=== PATIENT | female | born 1960 | race Caucasian/White ===

== ENCOUNTER 2021-04-24 18:04 | Inpatient (IN) | payer MEDICAID ==
[~2021-04-24] VITALS: Ht 154.9 cm; Wt 51.8 kg
[~2021-04-24 18:04] MED LIST: ASPI-1264 PO; METH10TA6 PO; PROP40TA72 PO
[2021-04-24] MEDS ORDERED: NORepinephrine 8mg/ 250ml NS 250 ML IV ONE (18:37)
--- NOTE | 2021-04-24 18:38 | NUR ---
[id number]
[2021-04-24] MEDS ORDERED: vancomycin/NS 1 GM ADD-VANTAGE 250 ML IV ONE (18:55)
[2021-04-24] MEDS ORDERED: piperacillin/tazo 3.375gm/50ml 50 ML IV ONE (18:55)
[2021-04-24 19:05] LABS: BASOPHILS % (AUTO) 0.5 % (0-1); EOSINOPHILS % (AUTO) 0.3 % (0-6); LYMPHOCYTES # (AUTO) 1.7 X10'3 (1.1-4.8); NEUTROPHILS # (AUTO) 5.5 X10'3 (1.8-7.7)
[2021-04-24 19:07] LABS: LYMPHOCYTES % (AUTO) 21.8 % (21-51); MEAN CORPUSCULAR HEMOGLOBIN 32.7 PG (27.0-31.0); MEAN CORPUSCULAR HGB CONC 33.8 g/dL (33.0-36.5); MEAN CORPUSCULAR VOLUME 96.8 FL (78-98); MEAN PLATELET VOLUME 7.1 FL (7.4-10.4); MONOCYTES # (AUTO) 0.5 X10'3 (0-0.9); MONOCYTES % (AUTO) 5.9 % (2-12); NEUTROPHILS % (AUTO) 71.5 % (42-75); PLATELET COUNT 242 X10'3 (140-440); RED CELL DISTRIBUTION WIDTH 14.1 % (11.5-14.5); WHITE BLOOD COUNT 7.7 X10'3 (4.5-11.0)
[2021-04-24 19:12] LABS: HEMATOCRIT 15.5 % (35.0-45.0)
[2021-04-24] MEDS ORDERED: octreotide inj. 1,250 MCG in normal saline 250ml IV soln 250 ML IV ONE (19:15)
[2021-04-24] MEDS ORDERED: pantoprazole IV 80 MG in normal saline 100ml IV soln 100 ML IV ONE ×4 (19:15)
[2021-04-24] MEDS ORDERED: pantoprazole IV 40 MG in normal saline 100ml IV soln 100 ML IV ONE (19:25)
[2021-04-24 19:28] LABS: ALANINE AMINOTRANSFERASE 14 U/L (12-78); ALBUMIN 2.4 G/DL (3.4-5.0); ALBUMIN/GLOBULIN RATIO 0.9 (1.1-1.5); ALKALINE PHOSPHATASE 170 IU/L (46-116); ANION GAP 16 (8-16); ASPARTATE AMINO TRANSFERASE 157 U/L (10-37); BILIRUBIN,TOTAL 0.5 MG/DL (0.1-1.0); CALCIUM 7.5 MG/DL (8.5-10.1); CHLORIDE 104 MMOL/L (99-107); CREATININE 7.32 MG/DL (0.40-0.90); GLUCOSE 114 MG/DL (70-104); LIPASE 424 U/L (73-393); POTASSIUM 5.2 MMOL/L (3.5-5.1); SODIUM 141 MMOL/L (135-145); TOTAL CARBON DIOXIDE 20.7 MMOL/L (24-32); TOTAL PROTEIN 5.1 G/DL (6.4-8.2); eGFR 6 ML/MIN
[2021-04-24 19:32] LABS: BLOOD UREA NITROGEN 190 MG/DL (7-18)
[2021-04-24] MEDS ORDERED: pantoprazole 40MG/NS 100ML BAG 100 ML IV ONE (19:45)
[2021-04-24 19:52] LABS: BANDS% (MANUAL) 1 % (0-10); LYMPHOCYTES % (MANUAL) 22 % (21-51); METAMYLEOCYTES% (MANUAL) 7 % (0-0); MONOCYTES % (MANUAL) 10 % (2-12); NEUTROPHILS % (MANUAL) 60 % (42-75); NUCLEATED RED BLOOD CELLS 4 /100WBC (0-0); TOTAL CELLS COUNTED 100
[2021-04-24 19:53] LABS: PLATELET ESTIMATE NORMAL
[2021-04-24 20:03] LABS: COLOR,URINE YELLOW (Yellow); GLUCOSE, URINE NEGATIVE (Neg); KETONES,URINE NEGATIVE (Neg); LEUKOCYTE ESTERASE ,URINE LARGE (Neg); NITRITES, URINE NEGATIVE (Neg); OCCULT BLOOD,URINE LARGE (Neg); PROTEIN,URINE 30 mg/dl (Neg); UROBILINOGEN,URINE 0.2 E.U/dL (0.2-1.0)
[2021-04-24 20:30] LABS: CLARITY,URINE CLOUDY (Clear)
[2021-04-24] MEDS: ondansetron/PF 4mg/2ml inj IV PRN (20:33)
[2021-04-24 21:00] LABS: UA COLLECTION TYPE FOLEY CATH
[2021-04-24 21:05] LABS: WBC,URINE 50-100 /HPF (0-4)
[2021-04-24 21:06] LABS: BACTERIA,URINE NONE SEEN /HPF (Neg); RBC,URINE TNTC /HPF (0-2); SQUAMOUS EPITHELIAL CELL,UR NONE SEEN /LPF (FEW)
[2021-04-24 21:28] VITALS: BP 107/33
[2021-04-24 21:30] LABS: OCCULT BLOOD STOOL POSITIVE (Neg)
[2021-04-24 21:42] VITALS: BP 124/41
[2021-04-24 21:50] VITALS: BP 127/41
[2021-04-24 23:17] LABS: BASOPHILS % (AUTO) 0.4 % (0-1); EOSINOPHILS % (AUTO) 0.4 % (0-6); LYMPHOCYTES # (AUTO) 1.8 X10'3 (1.1-4.8); LYMPHOCYTES % (AUTO) 20.4 % (21-51); MONOCYTES # (AUTO) 0.6 X10'3 (0-0.9)
[2021-04-24 23:19] LABS: HEMATOCRIT 27.3 % (35.0-45.0); MEAN CORPUSCULAR HEMOGLOBIN 29.5 PG (27.0-31.0); MEAN CORPUSCULAR HGB CONC 33.1 g/dL (33.0-36.5); MONOCYTES % (AUTO) 7.1 % (2-12); NEUTROPHILS # (AUTO) 6.3 X10'3 (1.8-7.7); NEUTROPHILS % (AUTO) 71.7 % (42-75); PLATELET COUNT 194 X10'3 (140-440); RED BLOOD COUNT 3.06 X10'6 (4.20-5.60); RED CELL DISTRIBUTION WIDTH 19.9 % (11.5-14.5); WHITE BLOOD COUNT 8.8 X10'3 (4.5-11.0)
[2021-04-24] MEDS: pantoprazole 40MG/NS 100ML BAG 100 ML IV SCH (23:25)
[2021-04-25] VITALS (37 sets, daily range): BP systolic 85–139; BP diastolic 23–57
[2021-04-25] MEDS: NORepinephrine 8mg/ 250ml NS 250 ML IV SCH (00:53)
[2021-04-25 02:12] LABS: HEMOGLOBIN 5.3 g/dl (12.0-16.0)
[2021-04-25 02:50] LABS: BASOPHILS % (AUTO) 0.5 % (0-1); HEMOGLOBIN 8.8 g/dl (12.0-16.0); MEAN PLATELET VOLUME 7.1 FL (7.4-10.4); MONOCYTES # (AUTO) 0.5 X10'3 (0-0.9); PLATELET COUNT 192 X10'3 (140-440)
[2021-04-25 02:53] LABS: EOSINOPHILS % (AUTO) 0.6 % (0-6); HEMATOCRIT 25.9 % (35.0-45.0); LYMPHOCYTES # (AUTO) 1.5 X10'3 (1.1-4.8); LYMPHOCYTES % (AUTO) 18.8 % (21-51); MEAN CORPUSCULAR HEMOGLOBIN 29.7 PG (27.0-31.0); MEAN CORPUSCULAR VOLUME 87.6 FL (78-98); MONOCYTES % (AUTO) 6.1 % (2-12); RED BLOOD COUNT 2.96 X10'6 (4.20-5.60); RED CELL DISTRIBUTION WIDTH 20.8 % (11.5-14.5)
[2021-04-25 03:05] LABS: PARTIAL THROMBOPLASTIN TIME 31 SECONDS (22-32)
[2021-04-25 03:58] LABS: ALANINE AMINOTRANSFERASE 15 U/L (12-78); ALBUMIN 2.3 G/DL (3.4-5.0); ALBUMIN/GLOBULIN RATIO 0.9 (1.1-1.5); ALKALINE PHOSPHATASE 164 IU/L (46-116); ANION GAP 16 (8-16); ASPARTATE AMINO TRANSFERASE 177 U/L (10-37); BILIRUBIN,TOTAL 0.5 MG/DL (0.1-1.0); CALCIUM 7.6 MG/DL (8.5-10.1); CHLORIDE 108 MMOL/L (99-107); CREATININE 6.98 MG/DL (0.40-0.90); GLUCOSE 101 MG/DL (70-104); MAGNESIUM 2.6 MG/DL (1.5-2.4); POTASSIUM 5.4 MMOL/L (3.5-5.1); SODIUM 142 MMOL/L (135-145); TOTAL CARBON DIOXIDE 18.1 MMOL/L (24-32); eGFR 6 ML/MIN
[2021-04-25 03:59] LABS: BLOOD UREA NITROGEN 183 MG/DL (7-18); BUN/CREATININE RATIO 26.2 (6.6-38.0)
[2021-04-25 04:43] LABS: VANCOMYCIN,RANDOM 24.5 UG/ML
[2021-04-25] MEDS: pantoprazole 40MG/NS 100ML BAG 100 ML IV SCH ×4 (04:58→20:28)
--- NOTE | 2021-04-25 06:10 | NUR ---
Patient in room ICU 2043. I have received report from Ashlie COPELAND and had the opportunity to ask questions and assume patient care.
[2021-04-25] MEDS: piperacillin/tazo 3.375gm/50ml 50 ML IV SCH ×2 (07:56→20:33)
[2021-04-25] MEDS ORDERED: FLO0.4C PO (10:55)
[2021-04-25] MEDS ORDERED: NO HOME MEDS (11:18)
--- NOTE | 2021-04-25 11:31 | NUR ---
Malnutrition Consult: Pt admit DX acute on chronic renal failure, UGIB, bilateral ureteral stones, and L hydronephrosis w/ hx breast CA currently bone METS per EMR. Pt seen by RD reports N/V, dry mouth, and decreased appetite past 3 weeks r/t pain. Current scaled wt 43.6kg making BMI 18.2 however pt appears WD/WN during RD visit simply smaller stature. Pt reports UBW 106 pounds 3 weeks prior however no scaled wt hx at this facility and RD contacted RD's at [facility] who report pt stated wt on 04/04/21 was 45kg. Likely some wt loss hx given hx though pt lacks minimum malnutrition criteria at this time. Pt NPO at this time pending EGD and renal ultrasound per otr company driver at rounds. Will monitor for additional malnutrition criteria this admit. Addendum: 04/25/21 at [address] Amended: Links added.
[2021-04-25 12:03] LABS: CLARITY,URINE CLOUDY (Clear); COLOR,URINE STRAW (Yellow); GLUCOSE, URINE NEGATIVE (Neg); KETONES,URINE NEGATIVE (Neg); LEUKOCYTE ESTERASE ,URINE LARGE (Neg); NITRITES, URINE NEGATIVE (Neg); OCCULT BLOOD,URINE LARGE (Neg); PROTEIN,URINE 30 mg/dl (Neg); UROBILINOGEN,URINE 0.2 E.U/dL (0.2-1.0)
[2021-04-25 12:05] LABS: TOTAL PROTEIN,URINE RANDOM 56.3 MG/DL
[2021-04-25] MEDS ORDERED: MIDAZolam 1 MG/ML 5ML VIAL ONE (12:14)
[2021-04-25] MEDS ORDERED: LIDOcaine Viscous 15ml cup ONE (12:14)
[2021-04-25] MEDS ORDERED: fentaNYL/PF 50MCG/1 ML 2ML syringe ONE (12:14)
[2021-04-25 12:19] LABS: UA COLLECTION TYPE NON-SPECIFIED
[2021-04-25 12:20] LABS: RBC,URINE TNTC /HPF (0-2)
[2021-04-25 12:21] LABS: BACTERIA,URINE 1+ /HPF (Neg); SQUAMOUS EPITHELIAL CELL,UR FEW /LPF (FEW); TRANSITIONAL EPI CELLS,URINE FEW /HPF
--- NOTE | 2021-04-25 13:00 | NUR ---
Ambulated patient 300 ft in the room and hallway. no distress. Patient stable and comfortable during ambulation
[2021-04-25 13:01] LABS: UA EOSINOPHILS NO EOS /HPF
--- NOTE | 2021-04-25 13:39 | NUR ---
GI team here completing EGD.
--- NOTE | 2021-04-25 14:19 | NUR ---
Dr. Ibanez was informed he can look at the patient CT from [facility] in [facility].
--- NOTE | 2021-04-25 16:40 | NUR ---
Informed Dr. Ibanez regarding patient had large black tarry and bright bloody stool. He stated he will place a Nuclear Med study
--- NOTE | 2021-04-25 18:13 | NUR ---
Problems reprioritized. Patient report given, questions answered & plan of care reviewed with Erica COPELAND.
[2021-04-25 20:18] LABS: BASOPHILS % (AUTO) 0.6 % (0-1); EOSINOPHILS # (AUTO) 0.1 X10'3 (0-0.9); EOSINOPHILS % (AUTO) 0.8 % (0-6); HEMOGLOBIN 8.6 g/dl (12.0-16.0); MEAN CORPUSCULAR HGB CONC 33.5 g/dL (33.0-36.5); MEAN PLATELET VOLUME 6.9 FL (7.4-10.4); WHITE BLOOD COUNT 8.7 X10'3 (4.5-11.0)
[2021-04-25 20:19] LABS: HEMATOCRIT 25.7 % (35.0-45.0); LYMPHOCYTES # (AUTO) 1.5 X10'3 (1.1-4.8); LYMPHOCYTES % (AUTO) 16.7 % (21-51); MEAN CORPUSCULAR HEMOGLOBIN 29.6 PG (27.0-31.0); MEAN CORPUSCULAR VOLUME 88.4 FL (78-98); MONOCYTES # (AUTO) 0.6 X10'3 (0-0.9); MONOCYTES % (AUTO) 6.8 % (2-12); NEUTROPHILS # (AUTO) 6.5 X10'3 (1.8-7.7); NEUTROPHILS % (AUTO) 75.1 % (42-75); PLATELET COUNT 193 X10'3 (140-440); RED BLOOD COUNT 2.91 X10'6 (4.20-5.60); RED CELL DISTRIBUTION WIDTH 22.1 % (11.5-14.5)
[2021-04-25] MEDS: lactobacillus rhamnosus 10,000 MMU CELLS/CAPSULE PO SCH (20:29)
[2021-04-26] VITALS (35 sets, daily range): BP systolic 109–153; BP diastolic 32–65
[2021-04-26] MEDS: pantoprazole 40MG/NS 100ML BAG 100 ML IV SCH ×3 (02:05→06:59)
[2021-04-26 02:48] LABS: EOSINOPHILS # (AUTO) 0.1 X10'3 (0-0.9); EOSINOPHILS % (AUTO) 0.9 % (0-6); HEMOGLOBIN 8.6 g/dl (12.0-16.0); LYMPHOCYTES # (AUTO) 1.6 X10'3 (1.1-4.8); MONOCYTES # (AUTO) 0.6 X10'3 (0-0.9)
[2021-04-26 02:50] LABS: BASOPHILS % (AUTO) 0.5 % (0-1); HEMATOCRIT 25.5 % (35.0-45.0); LYMPHOCYTES % (AUTO) 17.7 % (21-51); MEAN CORPUSCULAR HEMOGLOBIN 29.3 PG (27.0-31.0); MEAN CORPUSCULAR HGB CONC 33.8 g/dL (33.0-36.5); MEAN CORPUSCULAR VOLUME 86.7 FL (78-98); MONOCYTES % (AUTO) 6.8 % (2-12); NEUTROPHILS # (AUTO) 6.7 X10'3 (1.8-7.7); NEUTROPHILS % (AUTO) 74.1 % (42-75); PLATELET COUNT 194 X10'3 (140-440); RED BLOOD COUNT 2.94 X10'6 (4.20-5.60); RED CELL DISTRIBUTION WIDTH 22.2 % (11.5-14.5)
[2021-04-26 03:20] LABS: ALANINE AMINOTRANSFERASE 16 U/L (12-78); ALBUMIN 2.3 G/DL (3.4-5.0); ALBUMIN/GLOBULIN RATIO 0.7 (1.1-1.5); ALKALINE PHOSPHATASE 160 IU/L (46-116); ANION GAP 15 (8-16); ASPARTATE AMINO TRANSFERASE 139 U/L (10-37); BILIRUBIN,TOTAL 0.4 MG/DL (0.1-1.0); BLOOD UREA NITROGEN 144 MG/DL (7-18); BUN/CREATININE RATIO 20.9 (6.6-38.0); CALCIUM 8.1 MG/DL (8.5-10.1); CHLORIDE 108 MMOL/L (99-107); CREATININE 6.89 MG/DL (0.40-0.90); GLUCOSE 97 MG/DL (70-104); MAGNESIUM 2.5 MG/DL (1.5-2.4); PHOSPHORUS 6.6 MG/DL (2.3-4.5); POTASSIUM 4.9 MMOL/L (3.5-5.1); SODIUM 142 MMOL/L (135-145); TOTAL CARBON DIOXIDE 19.4 MMOL/L (24-32); TOTAL PROTEIN 5.4 G/DL (6.4-8.2); eGFR 6 ML/MIN
[2021-04-26 03:48] LABS: BANDS% (MANUAL) 6 % (0-10); NEUTROPHILS % (MANUAL) 56 % (42-75); TOTAL CELLS COUNTED 100
[2021-04-26 03:49] LABS: EOSINOPHILS % (MANUAL) 1 % (0-6); LYMPHOCYTES % (MANUAL) 17 % (21-51); METAMYLEOCYTES% (MANUAL) 4 % (0-0); MONOCYTES % (MANUAL) 12 % (2-12); MYELOCYTES % (MANUAL) 4 % (0-0); NUCLEATED RED BLOOD CELLS 1 /100WBC (0-0); PLATELET ESTIMATE NORMAL
[2021-04-26 03:50] LABS: ANISOCYTOSIS 3+
--- NOTE | 2021-04-26 04:49 | NUR ---
rounds with Dr. Munoz. current plan of care and lab values reviewed. Verbal order for Albumin 5% 250ml ONCE IV now.
[2021-04-26] MEDS ORDERED: albumin (Human) 5% 250ml 250 ML IV ONE (04:50)
--- NOTE | 2021-04-26 06:23 | NUR ---
Problems reprioritized. Patient report given, questions answered & plan of care reviewed with MIN Brody.
[2021-04-26] MEDS: piperacillin/tazo 3.375gm/50ml 50 ML IV SCH ×2 (07:44→19:33)
[2021-04-26] MEDS: lactobacillus rhamnosus 10,000 MMU CELLS/CAPSULE PO SCH ×3 (07:55→19:33)
[2021-04-26 08:52] LABS: VANCOMYCIN,RANDOM 16.6 UG/ML
[2021-04-26] MEDS: NORepinephrine 8mg/ 250ml NS 250 ML IV SCH (08:59)
[2021-04-26 11:01] LABS: PARTIAL THROMBOPLASTIN TIME 33 SECONDS (22-32)
[2021-04-26] MEDS ORDERED: iohexol 300 MG/1 ML 50ml polymer ONE (11:39)
[2021-04-26] MEDS ORDERED: proCHLORperazine 10 MG/2 ml inj IV PRN (11:50)
[2021-04-26] MEDS ORDERED: ondansetron/PF 4mg/2ml inj IV PRN (11:50)
[2021-04-26] MEDS ORDERED: morphine 2 MG/ML inj. syringe IV PRN (11:50)
[2021-04-26] MEDS ORDERED: meperidine/PF 25mg/ml syringe IV PRN (11:50)
[2021-04-26] MEDS ORDERED: ringers solution, lacted 1,000 ML IV SCH (11:50)
[2021-04-26] MEDS ORDERED: HYDROmorphone/PF 0.2 MG/ML SYRINGE IV PRN (11:50)
[2021-04-26] MEDS ORDERED: propofol 10mg/ml 20ml vial IV ONE (12:09)
[2021-04-26] MEDS ORDERED: sevoflurane 250ml liquid IH ONE (12:09)
[2021-04-26] MEDS ORDERED: fentaNYL/PF 50MCG/1 ML 2ML syringe ONE (12:14)
[2021-04-26] MEDS ORDERED: midazolam 1 mg/ML 2ml injection ONE (12:30)
[2021-04-26] MEDS ORDERED: 0.9 % SODIUM CHLORIDE 10 ML VIAL ONE (12:31)
[2021-04-26] MEDS ORDERED: LIDOcaine 2% (20mg/ml) 5ml vial ONE (12:31)
[2021-04-26] MEDS ORDERED: ePHEDrine 50MG/ML INJ. ONE (12:31)
[2021-04-26] MEDS ORDERED: ondansetron/PF 4mg/2ml inj ONE (12:31)
[2021-04-26] MEDS ORDERED: dexamethasone sod phosphate 4mg/ml inj. ONE (12:31)
--- NOTE | 2021-04-26 12:41 | NUR ---
Problems reprioritized. Patient report given, questions answered & plan of care reviewed with Healther RN.
--- NOTE | 2021-04-26 13:01 | NUR ---
ASSUME CARE VSS NO DISTRESS DENIES PAIN, ROCK CATH TO GRAVITY SECURED WITH STAT LOCK, CENTRAL LINE TLC TO NECK INTACT. CONT TO MONITOR. Addendum: 04/26/21 at 1318 by Charisma Phillips RN Amended: Links added.
--- NOTE | 2021-04-26 13:35 | NUR ---
PT AWAKE NO PAIN VSS MEETS CRITERIA TO DC TO ROOM REPORT CALLED TO MEAT CLERK. PER ANNABELLE COPELAND LAY UPS ASSEMBLER PT WILL RETURN BACK TO ICU. Addendum: 04/26/21 at 1336 by Charisma Phillips RN Amended: Links added.
--- NOTE | 2021-04-26 15:41 | NUR ---
1530- Dr. Ibanez states patient can be put on renal diet if there is no colonoscopy. Left voice message for Dr. Agudelo to inquire if he is wanting to do a colonoscopy at [phone].
--- NOTE | 2021-04-26 16:11 | NUR ---
Dr. Agudelo called back stating to put patient on clear liquids and watch for signs of bleeding. If bleeding occurs start 1/2 GoLytely tonight, 1/2 GoLytely in the morning, NPO after midnight, and will do EGD and colonoscopy tomorrow. Dr. Ibanez made aware.
--- NOTE | 2021-04-26 18:20 | NUR ---
Patient in room ICU 2043. I have received report from MIN Brody and had the opportunity to ask questions and assume patient care.
--- NOTE | 2021-04-26 18:21 | NUR ---
Problems reprioritized. Patient report given, questions answered & plan of care reviewed with Erica COPELAND.
[2021-04-26 19:48] LABS: BASOPHILS # (AUTO) 0.1 X10'3 (0-0.2); BASOPHILS % (AUTO) 0.7 % (0-1); EOSINOPHILS # (AUTO) 0.1 X10'3 (0-0.9); HEMATOCRIT 26.1 % (35.0-45.0); HEMOGLOBIN 8.5 g/dl (12.0-16.0); LYMPHOCYTES # (AUTO) 1.5 X10'3 (1.1-4.8); LYMPHOCYTES % (AUTO) 13.2 % (21-51); MEAN CORPUSCULAR HEMOGLOBIN 29.3 PG (27.0-31.0); MEAN CORPUSCULAR HGB CONC 32.7 g/dL (33.0-36.5); MEAN CORPUSCULAR VOLUME 89.8 FL (78-98); MEAN PLATELET VOLUME 6.9 FL (7.4-10.4); MONOCYTES # (AUTO) 0.2 X10'3 (0-0.9); NEUTROPHILS # (AUTO) 9.2 X10'3 (1.8-7.7); NEUTROPHILS % (AUTO) 83.1 % (42-75); PLATELET COUNT 189 X10'3 (140-440); WHITE BLOOD COUNT 11.1 X10'3 (4.5-11.0)
[2021-04-26 19:57] LABS: ALBUMIN 2.5 G/DL (3.4-5.0); ANION GAP 17 (8-16); BLOOD UREA NITROGEN 122 MG/DL (7-18); BUN/CREATININE RATIO 19.8 (6.6-38.0); CALCIUM 8.2 MG/DL (8.5-10.1); CHLORIDE 108 MMOL/L (99-107); CREATININE 6.16 MG/DL (0.40-0.90); GLUCOSE 258 MG/DL (70-104); POTASSIUM 4.8 MMOL/L (3.5-5.1); SODIUM 142 MMOL/L (135-145); TOTAL CARBON DIOXIDE 17.5 MMOL/L (24-32); eGFR 7 ML/MIN
--- NOTE | 2021-04-26 22:33 | NUR ---
Telephone call with Dr. Sarkar. Patient is experiencing pain to left kidney after stent replacement today. Need pain medication orders. Reviewed patient history of GI bleed. MD will place order for medications.
[2021-04-27] VITALS (26 sets, daily range): BP systolic 103–145; BP diastolic 32–64
[2021-04-27 04:00] LABS: ALBUMIN 2.4 G/DL (3.4-5.0); ANION GAP 13 (8-16); BLOOD UREA NITROGEN 113 MG/DL (7-18); BUN/CREATININE RATIO 21.1 (6.6-38.0); CALCIUM 8.1 MG/DL (8.5-10.1); CHLORIDE 111 MMOL/L (99-107); CREATININE 5.35 MG/DL (0.40-0.90); GLUCOSE 131 MG/DL (70-104); POTASSIUM 4.7 MMOL/L (3.5-5.1); SODIUM 144 MMOL/L (135-145); TOTAL CARBON DIOXIDE 19.6 MMOL/L (24-32); VANCOMYCIN,RANDOM 12.6 UG/ML; eGFR 8 ML/MIN
--- NOTE | 2021-04-27 04:00 | NUR ---
Patient assisted up to use bedside commode. Patient had a small bowel movement of brown stool. Patient denies any dizziness or discomfort at this time. Assisted back to bed without incident.
[2021-04-27 04:03] LABS: MONOCYTES # (AUTO) 0.5 X10'3 (0-0.9)
[2021-04-27 04:04] LABS: BASOPHILS # (AUTO) 0.1 X10'3 (0-0.2); BASOPHILS % (AUTO) 0.7 % (0-1); EOSINOPHILS # (AUTO) 0.1 X10'3 (0-0.9); EOSINOPHILS % (AUTO) 0.6 % (0-6); HEMATOCRIT 24.9 % (35.0-45.0); HEMOGLOBIN 8.3 g/dl (12.0-16.0); LYMPHOCYTES # (AUTO) 1.7 X10'3 (1.1-4.8); LYMPHOCYTES % (AUTO) 14.7 % (21-51); MEAN CORPUSCULAR HEMOGLOBIN 29.1 PG (27.0-31.0); MEAN CORPUSCULAR HGB CONC 33.2 g/dL (33.0-36.5); MEAN CORPUSCULAR VOLUME 87.5 FL (78-98); MONOCYTES % (AUTO) 4.7 % (2-12); NEUTROPHILS # (AUTO) 8.9 X10'3 (1.8-7.7); NEUTROPHILS % (AUTO) 79.3 % (42-75); PLATELET COUNT 197 X10'3 (140-440); RED BLOOD COUNT 2.84 X10'6 (4.20-5.60); RED CELL DISTRIBUTION WIDTH 21.3 % (11.5-14.5); WHITE BLOOD COUNT 11.3 X10'3 (4.5-11.0)
--- NOTE | 2021-04-27 06:08 | NUR ---
Problems reprioritized. Patient report given, questions answered & plan of care reviewed with MIN Chowdhury.
[2021-04-27 06:35] LABS: ANISOCYTOSIS 3+; NUCLEATED RED BLOOD CELLS 1 /100WBC (0-0); PLATELET ESTIMATE NORMAL; POIKILOCYTOSIS FEW; TOTAL CELLS COUNTED 100
[2021-04-27] MEDS: piperacillin/tazo 3.375gm/50ml 50 ML IV SCH ×2 (07:06→19:05)
[2021-04-27] MEDS: lactobacillus rhamnosus 10,000 MMU CELLS/CAPSULE PO SCH ×2 (07:06→19:05)
--- NOTE | 2021-04-27 09:50 | NUR ---
Initial: Pt admit for upper GIB, acute on chronic renal failure, and bilateral ureteral calculi. Pt s/p cystoscopy, bilateral retrograde pyelogram, and bilateral ureteral stent exchange 04/26. Pt on a clear liquid diet documented with 0-25% PO intake not meeting estimated nutrient needs, though unable to meet estimated nutrient needs on current diet order. Recommend diet advancement to regular as medically indicated. LBM 04/26. Will continue to follow closely and make recommendations as appropriate. Recommendations: 1) Advance to regular diet as medically indicated 2) Monitor need for ONS 3) Bowel care per rx 4) Weekly scaled weights Addendum: 04/27/21 at [address] Amended: Links added.
[2021-04-27] MEDS: HYDROcodone/acetaminophen 10/325mg tab PO PRN ×2 (10:39→19:05)
--- NOTE | 2021-04-27 18:42 | NUR ---
Patient in room ICU 2043. I have received report from MIN Chowdhury and had the opportunity to ask questions and assume patient care.
[2021-04-28] VITALS (18 sets, daily range): BP systolic 104–136; BP diastolic 33–76
[2021-04-28] MEDS: HYDROcodone/acetaminophen 10/325mg tab PO PRN (03:31)
--- NOTE | 2021-04-28 06:15 | NUR ---
Problems reprioritized. Patient report given, questions answered & plan of care reviewed with MIN Baugh.
--- NOTE | 2021-04-28 06:17 | NUR ---
Patient in room ICU 2043. I have received report from Wandy COPELAND and had the opportunity to ask questions and assume patient care.
[2021-04-28] MEDS: piperacillin/tazo 3.375gm/50ml 50 ML IV SCH ×2 (07:17→22:26)
[2021-04-28] MEDS: lactobacillus rhamnosus 10,000 MMU CELLS/CAPSULE PO SCH ×2 (07:17→21:57)
[2021-04-28 09:06] LABS: EOSINOPHILS # (AUTO) 0.1 X10'3 (0-0.9); EOSINOPHILS % (AUTO) 1.1 % (0-6); LYMPHOCYTES # (AUTO) 2.7 X10'3 (1.1-4.8); MONOCYTES # (AUTO) 0.8 X10'3 (0-0.9); MONOCYTES % (AUTO) 6.5 % (2-12)
[2021-04-28 09:08] LABS: BASOPHILS % (AUTO) 0.4 % (0-1); HEMATOCRIT 26.1 % (35.0-45.0); HEMOGLOBIN 8.4 g/dl (12.0-16.0); LYMPHOCYTES % (AUTO) 21.8 % (21-51); MEAN CORPUSCULAR HEMOGLOBIN 29.1 PG (27.0-31.0); MEAN CORPUSCULAR HGB CONC 32.2 g/dL (33.0-36.5); MEAN CORPUSCULAR VOLUME 90.5 FL (78-98); MEAN PLATELET VOLUME 7.1 FL (7.4-10.4); NEUTROPHILS # (AUTO) 8.7 X10'3 (1.8-7.7); NEUTROPHILS % (AUTO) 70.2 % (42-75); PLATELET COUNT 209 X10'3 (140-440); RED BLOOD COUNT 2.88 X10'6 (4.20-5.60); RED CELL DISTRIBUTION WIDTH 21.7 % (11.5-14.5); WHITE BLOOD COUNT 12.5 X10'3 (4.5-11.0)
[2021-04-28 09:13] LABS: ALANINE AMINOTRANSFERASE 11 U/L (12-78); ALBUMIN 2.5 G/DL (3.4-5.0); ALBUMIN/GLOBULIN RATIO 0.8 (1.1-1.5); ALKALINE PHOSPHATASE 144 IU/L (46-116); ANION GAP 16 (8-16); ASPARTATE AMINO TRANSFERASE 88 U/L (10-37); BILIRUBIN,TOTAL 0.3 MG/DL (0.1-1.0); BLOOD UREA NITROGEN 95 MG/DL (7-18); BUN/CREATININE RATIO 17.7 (6.6-38.0); CALCIUM 8.3 MG/DL (8.5-10.1); CHLORIDE 111 MMOL/L (99-107); CREATININE 5.36 MG/DL (0.40-0.90); GLUCOSE 93 MG/DL (70-104); POTASSIUM 3.9 MMOL/L (3.5-5.1); SODIUM 145 MMOL/L (135-145); TOTAL CARBON DIOXIDE 18.5 MMOL/L (24-32); TOTAL PROTEIN 5.7 G/DL (6.4-8.2); eGFR 8 ML/MIN
[2021-04-28 09:35] LABS: NUCLEATED RED BLOOD CELLS 4 /100WBC (0-0); TOTAL CELLS COUNTED 100
[2021-04-28 09:37] LABS: ACANTHOCYTES FEW; ANISOCYTOSIS 3+; BURR CELLS 1+; ELLIPTOCYTES FEW; PLATELET ESTIMATE NORMAL; POLYCHROMASIA FEW; SCHISTOCYTES FEW; TEAR DROP CELLS FEW
[2021-04-28 12:27] LABS: MAGNESIUM 2.2 MG/DL (1.5-2.4); PHOSPHORUS 4.4 MG/DL (2.3-4.5)
--- NOTE | 2021-04-28 16:06 | NUR ---
Patient report given to tele nurse Drea COPELAND. Pt moving to room 3013A. at bedside.
--- NOTE | 2021-04-28 16:30 | NUR ---
Patient moved to room 3013A with all belongings. at bedside, Drea COPELAND at bedside to receive pt.
--- NOTE | 2021-04-28 16:30 | NUR ---
Patient in room PCU 3013. I have received report from MIN Baugh and had the opportunity to ask questions and assume patient care.
--- NOTE | 2021-04-28 16:52 | NUR ---
I agree with Lupis COPELAND's assessment of the patient from 04/28/21. Patient is oriented to PCU and resting comfortably.
--- NOTE | 2021-04-28 18:31 | NUR ---
Problems reprioritized. Patient report given, questions answered & plan of care reviewed with MIN Zavala.
--- NOTE | 2021-04-28 19:25 | NUR ---
Patient in room PCU 3013. I have received report from MIN Shepard and had the opportunity to ask questions and assume patient care.
[2021-04-29 02:00] VITALS: BP_SYST 122; BP_SYST 128; BP_DIAS 48; BP_DIAS 79
[2021-04-29 06:00] VITALS: BP 97/48
--- NOTE | 2021-04-29 06:10 | NUR ---
Patient in room PCU 3013. I have received report from MIN Zavala and had the opportunity to ask questions and assume patient care.
--- NOTE | 2021-04-29 06:48 | NUR ---
Problems reprioritized. Patient report given, questions answered & plan of care reviewed with MIN Shepard.
[2021-04-29] MEDS: lactobacillus rhamnosus 10,000 MMU CELLS/CAPSULE PO SCH ×2 (08:18→20:23)
[2021-04-29] MEDS: piperacillin/tazo 3.375gm/50ml 50 ML IV SCH ×2 (08:18→20:23)
[2021-04-29 09:54] LABS: BASOPHILS # (AUTO) 0.1 X10'3 (0-0.2); EOSINOPHILS # (AUTO) 0.2 X10'3 (0-0.9); HEMATOCRIT 26.7 % (35.0-45.0); HEMOGLOBIN 8.7 g/dl (12.0-16.0); WHITE BLOOD COUNT 11.8 X10'3 (4.5-11.0)
[2021-04-29 09:56] LABS: BASOPHILS % (AUTO) 0.7 % (0-1); LYMPHOCYTES # (AUTO) 2.6 X10'3 (1.1-4.8); LYMPHOCYTES % (AUTO) 21.9 % (21-51); MEAN CORPUSCULAR HEMOGLOBIN 29.5 PG (27.0-31.0); MEAN CORPUSCULAR HGB CONC 32.6 g/dL (33.0-36.5); MEAN CORPUSCULAR VOLUME 90.6 FL (78-98); MONOCYTES # (AUTO) 0.9 X10'3 (0-0.9); MONOCYTES % (AUTO) 7.3 % (2-12); NEUTROPHILS # (AUTO) 8.1 X10'3 (1.8-7.7); NEUTROPHILS % (AUTO) 68.1 % (42-75); PLATELET COUNT 209 X10'3 (140-440); RED BLOOD COUNT 2.95 X10'6 (4.20-5.60); RED CELL DISTRIBUTION WIDTH 21.4 % (11.5-14.5)
[2021-04-29 10:11] LABS: ALANINE AMINOTRANSFERASE 13 U/L (12-78); ALBUMIN 2.4 G/DL (3.4-5.0); ALBUMIN/GLOBULIN RATIO 0.8 (1.1-1.5); ALKALINE PHOSPHATASE 153 IU/L (46-116); ANION GAP 15 (8-16); ASPARTATE AMINO TRANSFERASE 95 U/L (10-37); BILIRUBIN,TOTAL 0.3 MG/DL (0.1-1.0); BLOOD UREA NITROGEN 85 MG/DL (7-18); BUN/CREATININE RATIO 15.3 (6.6-38.0); CALCIUM 8.4 MG/DL (8.5-10.1); CHLORIDE 110 MMOL/L (99-107); CREATININE 5.57 MG/DL (0.40-0.90); GLUCOSE 93 MG/DL (70-104); MAGNESIUM 2.1 MG/DL (1.5-2.4); PHOSPHORUS 4.7 MG/DL (2.3-4.5); SODIUM 143 MMOL/L (135-145); TOTAL CARBON DIOXIDE 17.6 MMOL/L (24-32); TOTAL PROTEIN 5.6 G/DL (6.4-8.2); eGFR 8 ML/MIN
[2021-04-29 11:00] VITALS: BP 109/50
[2021-04-29 14:04] LABS: NUCLEATED RED BLOOD CELLS 4 /100WBC (0-0); TOTAL CELLS COUNTED 100
[2021-04-29 14:05] LABS: ANISOCYTOSIS 3+; PLATELET ESTIMATE NORMAL; POLYCHROMASIA 1+
[2021-04-29 15:00] VITALS: BP 115/44
[2021-04-29 15:47] LABS: BURR CELLS 1+; ELLIPTOCYTES FEW; SCHISTOCYTES FEW; TEAR DROP CELLS FEW
[2021-04-29 18:00] VITALS: BP 120/49
--- NOTE | 2021-04-29 18:30 | NUR ---
Patient in room PCU 3013. I have received report from MIN Shepard and had the opportunity to ask questions and assume patient care.
[2021-04-29 22:00] VITALS: BP 149/66
[2021-04-30 02:00] VITALS: BP 177/67
[2021-04-30 05:48] VITALS: BP 128/47
[2021-04-30 06:00] VITALS: BP 118/50
--- NOTE | 2021-04-30 06:18 | NUR ---
Patient in room PCU 3013. I have received report from Sally COPELAND and had the opportunity to ask questions and assume patient care.
--- NOTE | 2021-04-30 06:19 | NUR ---
Problems reprioritized. Patient report given, questions answered & plan of care reviewed with MIN Torres.
[2021-04-30 06:51] LABS: BASOPHILS # (AUTO) 0.1 X10'3 (0-0.2); EOSINOPHILS # (AUTO) 0.2 X10'3 (0-0.9); HEMOGLOBIN 8.1 g/dl (12.0-16.0); LYMPHOCYTES # (AUTO) 2.1 X10'3 (1.1-4.8); MEAN PLATELET VOLUME 7.3 FL (7.4-10.4); MONOCYTES # (AUTO) 0.7 X10'3 (0-0.9)
[2021-04-30 06:54] LABS: BASOPHILS % (AUTO) 0.5 % (0-1); EOSINOPHILS % (AUTO) 1.8 % (0-6); LYMPHOCYTES % (AUTO) 19.7 % (21-51); MEAN CORPUSCULAR HEMOGLOBIN 30.1 PG (27.0-31.0); MEAN CORPUSCULAR HGB CONC 33.6 g/dL (33.0-36.5); MEAN CORPUSCULAR VOLUME 89.7 FL (78-98); NEUTROPHILS # (AUTO) 7.6 X10'3 (1.8-7.7); PLATELET COUNT 196 X10'3 (140-440); RED BLOOD COUNT 2.68 X10'6 (4.20-5.60); RED CELL DISTRIBUTION WIDTH 20.8 % (11.5-14.5)
[2021-04-30 06:56] LABS: WHITE BLOOD COUNT 10.9 X10'3 (4.5-11.0)
[2021-04-30] MEDS: lactobacillus rhamnosus 10,000 MMU CELLS/CAPSULE PO SCH (07:07)
[2021-04-30] MEDS: piperacillin/tazo 3.375gm/50ml 50 ML IV SCH (07:07)
[2021-04-30] MEDS: ondansetron/PF 4mg/2ml inj IV PRN (07:14)
[2021-04-30 07:17] LABS: ALANINE AMINOTRANSFERASE 9 U/L (12-78); ALBUMIN 2.2 G/DL (3.4-5.0); ALBUMIN/GLOBULIN RATIO 0.7 (1.1-1.5); ALKALINE PHOSPHATASE 150 IU/L (46-116); ANION GAP 14 (8-16); ASPARTATE AMINO TRANSFERASE 89 U/L (10-37); BILIRUBIN,TOTAL 0.3 MG/DL (0.1-1.0); BLOOD UREA NITROGEN 79 MG/DL (7-18); BUN/CREATININE RATIO 14.2 (6.6-38.0); CALCIUM 8.3 MG/DL (8.5-10.1); CHLORIDE 110 MMOL/L (99-107); CREATININE 5.56 MG/DL (0.40-0.90); GLUCOSE 84 MG/DL (70-104); POTASSIUM 4.2 MMOL/L (3.5-5.1); SODIUM 142 MMOL/L (135-145); TOTAL CARBON DIOXIDE 18.2 MMOL/L (24-32); TOTAL PROTEIN 5.4 G/DL (6.4-8.2); eGFR 8 ML/MIN
[2021-04-30 08:05] LABS: ANISOCYTOSIS 3+; PLATELET ESTIMATE NORMAL; POLYCHROMASIA 1+; SCHISTOCYTES FEW
--- NOTE | 2021-04-30 11:45 | NUR ---
Reassessment: Patient's diet was advanced to regular 04/27 and pt with average 25% PO intake since diet advancement, however up to 75-100% PO intake at breakfast this morning. Pt receiving an apple TID per request. LBM 04/29, per EMR pt reported diarrhea. Will continue to follow closely and make recommendations as appropriate pending further trends in PO intake. Recommendations: 1) Continue regular diet; monitor need for diet change to renal 2) [place] food preferences: apple TID 3) Monitor need for ONS 4) Bowel care per rx 5) Weekly scaled weights Addendum: 04/30/21 at [address] Amended: Links added.
[2021-04-30 12:00] VITALS: BP 113/53
--- NOTE | 2021-04-30 14:00 | NUR ---
Patient stable and comfortable at time of discharge. removed telemetry and PIV with cannula intact. No redness or irritation at PIV site. Gathered all valuable and gave to patient. Gave patient all discharge information and discharge education to patient and patient family member. Reviewed and answered all questions of discharge information and discharge education. Patient and patient family member was able to verbalize back all discharge information and discharge education. Patient was wheeled out to lobby by staff member and accompanied by family member. Patient left hospital via private vehicle with family member
== END 2021-04-30 14:15 | disposition home or self-care (01) | DRG 254 ==
LOC: ER 18:05 → ED HOLD 21:09 → ICU 2S 04-25 00:06 → PCU 3S 04-28 16:20
PROVIDERS: ADMIT Internal Medicine; ATTEND Internal Medicine
PROC: 30233N1 Transfusion of Nonautologous Red Blood Cells into Peripheral Vein, Percutaneous Approach (ICD-10-PCS; 2021-04-24)
PROC: 0DB68ZX Excision of Stomach, Via Natural or Artificial Opening Endoscopic, Diagnostic (ICD-10-PCS; principal; 2021-04-25)
PROC: 0TP98DZ Removal of Intraluminal Device from Ureter, Via Natural or Artificial Opening Endoscopic (ICD-10-PCS; 2021-04-26)
PROC: 0T788DZ Dilation of Bilateral Ureters with Intraluminal Device, Via Natural or Artificial Opening Endoscopic (ICD-10-PCS; 2021-04-26)
PROC: BT141ZZ Fluoroscopy of Kidneys, Ureters and Bladder using Low Osmolar Contrast (ICD-10-PCS; 2021-04-26)
PROC: CT131ZZ Planar Nuclear Medicine Imaging of Kidneys, Ureters and Bladder using Technetium 99m (Tc-99m) (ICD-10-PCS; 2021-04-30)
DX: K92.1 Melena (principal); R57.9 Shock, unspecified; N17.9 Acute kidney failure, unspecified; N13.6 Pyonephrosis; C79.51 Secondary malignant neoplasm of bone; K92.0 Hematemesis; D64.9 Anemia, unspecified; F17.200 Nicotine dependence, unspecified, uncomplicated; N18.9 Chronic kidney disease, unspecified; N39.0 Urinary tract infection, site not specified; K29.80 Duodenitis without bleeding; N20.2 Calculus of kidney with calculus of ureter; Z20.822 Contact with and (suspected) exposure to COVID-19; N26.1 Atrophy of kidney (terminal); Z80.52 Family history of malignant neoplasm of bladder; Z85.3 Personal history of malignant neoplasm of breast; Z87.442 Personal history of urinary calculi; Z90.12 Acquired absence of left breast and nipple; Z79.899 Other long term (current) drug therapy; Z79.82 Long term (current) use of aspirin
CPT/HCPCS: 36415; 36430; 43239; 71045; 74420; 76000; 76770; 78707; 80048; 80053; 80202; 81001; 82272; 82570; 82948; 83605; 83690; 83735; 84100; 84145; 84156; 84300; 85007; 85008; 85025; 85384; 85610; 85730; 86644; 86885; 86900; 86901; 86920; 86945; 87040; 87081; 87088; 87207; 87635; 93005; 96365; 96366; 96368; 97116; 97161; 97530; 99152; 99291; A4357; A4618; A9562; C1758; C1769; C2617; C9113; G0378; J1100; J2001; J2250; J2270; J2354; J2405; J2543; J2704; J3010; J3370; J7040; J7050; P9016; P9045; Q9967

== ENCOUNTER 2021-05-31 03:14 | Inpatient (IN) | payer BC, MEDICAID ==
[~2021-05-31] VITALS: Ht 157.5 cm; Wt 38.6 kg
[~2021-05-31 03:14] MED LIST changes: -ASPI-1264 PO; -METH10TA6 PO; +NO HOME MEDS; -PROP40TA72 PO
[2021-05-31] MEDS ORDERED: HYDR-3964 PO (04:12)
[2021-05-31] MEDS ORDERED: PALB125T PO (04:12)
[2021-05-31] MEDS ORDERED: ANAS1TAB10 PO (04:12)
[2021-05-31] MEDS ORDERED: heparin 10,000 units/1 ML INJ IV ONE (04:35)
[2021-05-31] MEDS ORDERED: magnesium hydroxide 30ml (MOM) UD suspension PO PRN (05:00)
[2021-05-31] MEDS ORDERED: mag hydrox/Alum hydrox/simeth 30ml oral suspension PO PRN (05:00)
[2021-05-31] MEDS ORDERED: HYDROcodone/acetaminophen 5mg/325mg tablet PO PRN ×2 (05:00)
[2021-05-31] MEDS ORDERED: morphine 2 MG/ML inj. syringe IV PRN ×2 (05:00)
[2021-05-31] MEDS ORDERED: ondansetron/PF 4mg/2ml inj IV PRN (05:00)
[2021-05-31] MEDS ORDERED: acetaminophen 325mg tablet PO PRN (05:00)
[2021-05-31] MEDS ORDERED: HYDROcodone/acetaminophen 10/325mg tab PO PRN (05:00)
[2021-05-31] MEDS ORDERED: anastrozole 1 MG tablet PO SCH (08:00)
[2021-05-31] MEDS ORDERED: docusate sod 100mg capsule PO SCH (08:00)
[2021-05-31 10:20] LABS: BASOPHILS # (AUTO) 0.1 X10'3 (0-0.2); BASOPHILS % (AUTO) 0.9 % (0-1); EOSINOPHILS # (AUTO) 0.2 X10'3 (0-0.9); HEMATOCRIT 24.9 % (35.0-45.0); HEMOGLOBIN 8.4 g/dl (12.0-16.0); MEAN CORPUSCULAR HEMOGLOBIN 30.9 PG (27.0-31.0); MEAN CORPUSCULAR HGB CONC 33.9 g/dL (33.0-36.5); MEAN CORPUSCULAR VOLUME 91.2 FL (78-98); RED BLOOD COUNT 2.73 X10'6 (4.20-5.60)
[2021-05-31 10:22] LABS: EOSINOPHILS % (AUTO) 1.5 % (0-6); LYMPHOCYTES # (AUTO) 2.5 X10'3 (1.1-4.8); LYMPHOCYTES % (AUTO) 21.5 % (21-51); MEAN PLATELET VOLUME 7.1 FL (7.4-10.4); MONOCYTES # (AUTO) 0.7 X10'3 (0-0.9); MONOCYTES % (AUTO) 6.3 % (2-12); NEUTROPHILS # (AUTO) 8.1 X10'3 (1.8-7.7); NEUTROPHILS % (AUTO) 69.8 % (42-75); PLATELET COUNT 368 X10'3 (140-440); RED CELL DISTRIBUTION WIDTH 23.2 % (11.5-14.5); WHITE BLOOD COUNT 11.6 X10'3 (4.5-11.0)
[2021-05-31 10:23] LABS: PARTIAL THROMBOPLASTIN TIME 51 SECONDS (22-32)
[2021-05-31 10:26] LABS: ALANINE AMINOTRANSFERASE 27 U/L (12-78); ALBUMIN 3.1 G/DL (3.4-5.0); ALBUMIN/GLOBULIN RATIO 0.7 (1.1-1.5); ALKALINE PHOSPHATASE 245 IU/L (46-116); ANION GAP 18 (8-16); ASPARTATE AMINO TRANSFERASE 113 U/L (10-37); BILIRUBIN,TOTAL 0.3 MG/DL (0.1-1.0); BLOOD UREA NITROGEN 112 MG/DL (7-18); BUN/CREATININE RATIO 18.2 (6.6-38.0); CALCIUM 11.5 MG/DL (8.5-10.1); CHLORIDE 94 MMOL/L (99-107); CREATININE 6.14 MG/DL (0.40-0.90); GLUCOSE 99 MG/DL (70-104); SODIUM 134 MMOL/L (135-145); TOTAL PROTEIN 7.6 G/DL (6.4-8.2); eGFR 7 ML/MIN
[2021-05-31 10:27] LABS: D-DIMER 4.64 MG/L FEU (0-0.50)
--- NOTE | 2021-05-31 10:52 | NUR ---
SPOKE W/ 'S RN ABOUT CHEMO DRUG IBRANCE. JD COLON REQUESTED ONCOLOGIST TO REVIEW CHEMO MEDICATIONS. UPDATED SENIOR UX DESIGNER ON CURRENT LABS. RN TO CALL ME BACK AFTER CONSULTING W/ ONCOLOGIST.
--- NOTE | 2021-05-31 10:54 | NUR ---
PT LABS FROM ONCOLOGIST ON 05/22 RESULT GFR 10, CREAT 4.6 PER CARDIOPULMONARY TECHNICIAN
--- NOTE | 2021-05-31 11:08 | NUR ---
MIN GOLDSTEIN FROM ONCOLOGY CALLED BACK STATING DR. SENIOR ORDERED TO HOLD IBRANCE AND WILL FOLLOW UP W/ PT POST HOSPITAL DC. PT AND NOTIFIED.
[2021-05-31 11:20] VITALS: BP 134/52
[2021-05-31 11:49] LABS: ANISOCYTOSIS 3+; NUCLEATED RED BLOOD CELLS 5 /100WBC (0-0); PLATELET ESTIMATE NORMAL; TOTAL CELLS COUNTED 100
[2021-05-31 11:50] LABS: POLYCHROMASIA 1+
[2021-05-31] MEDS ORDERED: AZIT500T PO (15:07)
[2021-05-31 15:43] LABS: CLARITY,URINE CLOUDY (Clear); COLOR,URINE YELLOW (Yellow); UA COLLECTION TYPE NON-SPECIFIED
[2021-05-31 15:45] LABS: PH,URINE 6.5 (4.8-8.0)
[2021-05-31 15:46] LABS: GLUCOSE, URINE NEGATIVE (Neg); KETONES,URINE NEGATIVE (Neg); PROTEIN,URINE 100 mg/dl (Neg)
[2021-05-31 15:47] LABS: NITRITES, URINE POSITIVE (Neg); OCCULT BLOOD,URINE TRACE-INTACT (Neg)
[2021-05-31 15:50] LABS: LEUKOCYTE ESTERASE ,URINE LARGE (Neg); UROBILINOGEN,URINE 0.2 E.U/dL (0.2-1.0)
[2021-05-31 16:11] LABS: BACTERIA,URINE 2+ /HPF (Neg); RBC,URINE 20-50 /HPF (0-2); SQUAMOUS EPITHELIAL CELL,UR FEW /LPF (FEW); WBC,URINE TNTC /HPF (0-4)
== END 2021-05-31 15:00 | disposition home or self-care (01) | DRG 204 ==
LOC: ER 03:14 → ED HOLD 04:58
PROVIDERS: ADMIT Internal Medicine; ATTEND Internal Medicine
PROC: CB121ZZ Planar Nuclear Medicine Imaging of Lungs and Bronchi using Technetium 99m (Tc-99m) (ICD-10-PCS; principal; 2021-05-31)
DX: R07.81 Pleurodynia (principal); N18.6 End stage renal disease; C79.51 Secondary malignant neoplasm of bone; N17.9 Acute kidney failure, unspecified; N39.0 Urinary tract infection, site not specified; N20.1 Calculus of ureter; Z20.822 Contact with and (suspected) exposure to COVID-19; C50.912 Malignant neoplasm of unspecified site of left female breast; Z80.52 Family history of malignant neoplasm of bladder; Z87.11 Personal history of peptic ulcer disease; Z87.891 Personal history of nicotine dependence; Z90.12 Acquired absence of left breast and nipple; Z79.899 Other long term (current) drug therapy
CPT/HCPCS: 36415; 71250; 78582; 80053; 81001; 85007; 85025; 85379; 85730; 87081; 87088; 99285; A9539; A9540; G0378; J1644; J2405